=== PATIENT | male | born 1970 | race Caucasian/White ===

== ENCOUNTER 2017-04-25 16:18 | Emergency (ER) | payer OTHER | END 2017-04-25 18:08 | disposition home or self-care (01) | LOC: E/R 16:18 | DX: R50.9 Fever, unspecified (principal); R05 Cough; R09.89 Other specified symptoms and signs involving the circulatory and respiratory systems; J02.9 Acute pharyngitis, unspecified; J45.909 Unspecified asthma, uncomplicated | CPT/HCPCS: 99283 ==

== ENCOUNTER 2018-01-18 08:40 | Emergency (ER) | payer OTHER | END 2018-01-18 11:06 | disposition home or self-care (01) | LOC: FTE 08:40 | DX: J02.9 Acute pharyngitis, unspecified (principal); H66.91 Otitis media, unspecified, right ear; J45.909 Unspecified asthma, uncomplicated | CPT/HCPCS: 87880; 99283 ==

== ENCOUNTER 2018-09-02 00:27 | Emergency (ER) | payer OTHER | END 2018-09-02 04:23 | disposition home or self-care (01) | LOC: FTE 00:27 | DX: H60.501 Unspecified acute noninfective otitis externa, right ear (principal) | CPT/HCPCS: 99282 ==